=== PATIENT | female | born 1990 | race African-American/Black ===

== ENCOUNTER 2020-09-17 12:09 | Emergency (ER) | payer OTHER ==
[~2020-09-17] VITALS: Ht 165.1 cm; Wt 99.8 kg
--- NOTE | ~2020-09-17 | EMS ---
[address] [address] EMS Patient Care Report Name: JOSETTE DELGADO Room #: DEP BELKIS Harmon#: [id number] Admission: 09/17/20 Attend Phys: Discharge: 09/17/20 Date of : [birth year] Report #: [id number] THIS REPORT FOR: //name// Report Transmitted: 09/17/2020 13:12 EMS Care Summary [place], [place]/[facility] Incident [id number] @ 09/17/2020 11:23 Incident Location [facility] [address] [place] [address] Patient MANNY DELGADO Female, 30 Years 1990 Patient Address [address] [place] [address] Patient History None Reported, Patient Allergies No known allergies, Patient Medications None Reported, Chief Complaint My heart, see narrative Disposition Transported No Lights/Energy Dispatch Reason Breathing Problem Transported To [facility] Narrative Called to the scene for SOB. Upon arrival, pt was SULLIVAN x 3 sitting on the bed in minor distress. Pt stated her heart was feeling funny and she felt like she couldn't breathe. She said this all started this morning and happened approx a month ago where she was seen at [facility] with no definitive results [address] [address] EMS Patient Care Report Name: JOSETTE DELGADO Room #: DEP Sheila.#: [id number] Admission: 09/17/20 Attend Phys: Discharge: 09/17/20 Date of : [birth year] Report #: [id number] obtained. She requests transport to [facility] ER for further eval & tx. Pt was assisted to the EMS cot and loaded into the ambulance w/o incident. Vitals obtained. Attempt IV x 2. 4 & 12 Lead. 18g IV obtained. D-stick. Vitals repeated. En route: cont to monitor the pt, no significant changes. RR to ER. Arrived: pt taken to ER #2 and moved to their bed w/o incident. Pt care & report to ER staff. Initial Vitals @11:53P: 154,CO: 0,SpO2: 100, @11:44P: 83,SpO2: 83, @11:42P: 84, @11:38P: 111,R: 20,BP: 143/78,Pain: 2/10,GCS: 15,Revised Trauma: 12, @12:01P: 77,R: 18,BP: 132/74,Pain: 2/10,GCS: 15,Glucose: 71,CO: 0,SpO2: 100,Revised Trauma: 12,MD Suspected: false Assessments @11:31MENTAL:Person Oriented,Time Oriented,Event Oriented,Place Oriented,SKIN:HEENT:LUNG SOUNDS:ABDOMEN:PELVIS//GI:EXTREMITIES:Left Arm: No Abnormalities,Right Arm: No Abnormalities,Left Leg: No Abnormalities,Right Leg: No Abnormalities,PULSE:Radial: 2+ Normal,NEURO:No Abnormalities, Impression Generalized Weakness Procedures @11:4512-Lead ECGResponse: UnchangedSucceeded@11:4412-Lead ECGResponse: UnchangedSucceeded@11:4212-Lead ECGResponse: UnchangedSucceeded@11:42Saline Lock cc (18 ga) Site: Antecubital-LeftResponse: UnchangedFailed@11:45Saline Lock 8cc (18 ga) Site: Antecubital-RightResponse: UnchangedSucceeded@11:403-Lead ECGResponse: UnchangedSucceeded@11:36StretcherResponse: Unchanged@11:31ALS AssessmentResponse: UnchangedSucceeded Timeline 11:21,Call Received 11:21,Dispatch Notified 11:23,Dispatched 11:23,En Route 11:30,On Scene 11:31,At Patient 11:31,ALS Assessment,Response: UnchangedSucceeded, 11:36,Stretcher,Response: Unchanged 11:38,BP: 143/78 M,PULSE: 111,RR: 20 R,SPO2: Ox,ETCO2: ,BG: ,PAIN: 2,GCS: 15, 11:40,3-Lead ECG,Response: UnchangedSucceeded, 11:42,12-Lead ECG,Response: UnchangedSucceeded, 11:42,Saline Lock cc 18 ga Site: Antecubital-Left,Response: UnchangedFailed, [address] [place] [address] EMS Patient Care Report Name: JOSETTE DELGADO Room #: MEIR Harmon#: [id number] Admission: 09/17/20 Attend Phys: Discharge: 09/17/20 Date of : [birth year] Report #: [id number] 11:42,BP: / M,PULSE: 84,RR: R,SPO2: Ox,ETCO2: ,BG: ,PAIN: ,GCS: , 11:44,12-Lead ECG,Response: UnchangedSucceeded, 11:44,BP: / M,PULSE: 83,RR: R,SPO2: 83 Ox,ETCO2: ,BG: ,PAIN: ,GCS: , 11:45,12-Lead ECG,Response: UnchangedSucceeded, 11:45,Saline Lock 8cc 18 ga Site: Antecubital-Right,Response: UnchangedSucceeded, 11:49,Depart Scene 11:53,BP: / M,PULSE: 154,RR: R,SPO2: 100 Ox,ETCO2: ,BG: ,PAIN: ,GCS: , 12:01,BP: 132/74 M,PULSE: 77,RR: 18 R,SPO2: 100 Ox,ETCO2: ,B,PAIN: 2,GCS: 15, 12:05,At Destination 12:21,Call Closed Disclaimer v1.1 Copyright 2020 [employer] This EMS Care Summary contains data elements from the applicable legal record (which may be displayed differently). It is designed to provide pertinent information for the following purposes: continuity of care, clinical quality, and state data reporting. The complete legal record is available to ED staff and administrators of the receiving hospital in [employer] Patient Tracker. All data is provided "as is."
[2020-09-17 12:27] LABS: ABSOLUTE NEUTROPHILS 3.2 thou/uL (1.4-8.2); BASOPHILS 0.7 % (0.0-2.0); EOSINOPHILS 0.5 % (0.0-3.0); HEMATOCRIT 39.8 % (37.0-47.0); HEMOGLOBIN 13.2 gm/dL (12.0-15.0); LYMPHOCYTES 36.7 % (24.0-44.0); MCH 29.6 pg (26.0-34.0); MCHC 33.2 g/dL (28.0-37.0); MCV 89.2 fL (80.0-100.0); MONOCYTES 9.9 % (1.0-8.0); PLATELET COUNT 249 thou/uL (150-400); POLYS 52.2 % (36.0-66.0); RBC 4.46 mil/uL (4.20-5.00); RDW 12.3 % (10.5-14.5); WBC 6.2 thou/uL (4.0-11.0)
[2020-09-17 12:40] LABS: ALBUMIN 4.4 g/dL (3.4-5.0); ANION GAP 17 mmol/L (7-16); BUN 8 mg/dL (7-18); CALCIUM 9.4 mg/dL (8.5-10.1); CHLORIDE 102 mmol/L (98-107); CO2 21 mmol/L (21-32); CREATININE 0.8 mg/dL (0.6-1.0); GLUCOSE 103 mg/dL (74-106); MAGNESIUM 1.9 mg/dL (1.8-2.4); SGOT 37 U/L (15-37); SGPT 19 U/L (30-65); SODIUM 140 mmol/L (136-145); TOTAL BILIRUBIN 0.6 mg/dL (0.2-1.0); TOTAL PROTEIN 8.3 g/dL (6.4-8.2); TROPONIN-I <0.06 ng/mL (<0.06)
[2020-09-17 12:42] LABS: URINE BILIRUBIN NEGATIVE (Negative); URINE BLOOD NEGATIVE (Negative); URINE CLARITY CLEAR; URINE COLOR YELLOW; URINE GLUCOSE-RANDOM* NEGATIVE (Negative); URINE KETONES 1+ (Negative); URINE LEUKOCYTES-REFLEX NEGATIVE (Negative); URINE NITRITE-REFLEX NEGATIVE (Negative); URINE PROTEIN (DIPSTICK) NEGATIVE (Negative); URINE UROBILINOGEN 0.2 E.U./dl (0.2-1.0)
[2020-09-17 13:32] VITALS: BP 116/75
--- NOTE | 2020-09-17 14:44 | EKG ---
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1990 Requested By: Mahad Schulte Order Number: [id number] MD: Arpit Bergman Measurements Intervals [place] Rate: 73 P: 14 VA: 129 QRS: 47 QRSD: 85 T: 16 QT: 444 QTc: 490 Interpretive Statements Sinus rhythm Atrial premature complexes in couplets Borderline T wave abnormalities Borderline prolonged QT interval No previous ECG available for comparison Electronically Signed On 09-17-2020 14:44:01 CDT by Arpit Bergman [email or web address] <ELECTRONICALLY SIGNED> By: Arpit Bergman MD, [facility] 09/17/20 1444 1211 1211 Arpit Bergman MD, FACC /EPI
== END 2020-09-17 13:37 | disposition home or self-care (01) ==
LOC: ER 12:09
PROVIDERS: Emergency Medicine
DX: E87.6 Hypokalemia (principal); R00.2 Palpitations; R42 Dizziness and giddiness; F17.210 Nicotine dependence, cigarettes, uncomplicated